=== PATIENT | female | born 1980 | race African-American/Black ===

== ENCOUNTER 2018-10-16 12:15 | Emergency (ER) | payer MEDICAID, OTHER ==
[~2018-10-16] VITALS: Ht 172.7 cm; Wt 54.5 kg
[2018-10-16 14:20] VITALS: BP 136/92
[2018-10-16] MEDS ORDERED: IBUPROFEN 600 MG TABLET PO ONE (14:30)
== END 2018-10-16 14:54 | disposition home or self-care (01) ==
LOC: EMS 12:15
DX: R07.81 Pleurodynia (principal)

== ENCOUNTER 2022-01-14 14:24 | Emergency (ER) | payer MEDICAID, OTHER ==
[~2022-01-14] VITALS: Ht 172.7 cm; Wt 61.4 kg
[2022-01-14] MEDS ORDERED: MORPHINE SULFATE 4 MG/ML SYRINGE IVP ONE (14:45)
[2022-01-14] MEDS ORDERED: LIDOCAINE 1% 10 ML VIAL ID ONE (14:45)
[2022-01-14] MEDS ORDERED: SODIUM CHLORIDE 0.9% 250 ML IRRIG SOLUTION BOTTLE IRRIG ONE (14:45)
[2022-01-14] MEDS ORDERED: SODIUM CHLORIDE 0.9% 1,000 ML IV ONE (14:45)
[2022-01-14] MEDS ORDERED: DiphenhydrAMINE HCL 50 MG/ML VIAL IVP ONE (14:45)
[2022-01-14 15:02] LABS: BASOPHILS % (AUTO) 0.4 % (0.0-2.0); EOSINOPHILS % (AUTO) 0.5 % (1.0-6.0); HEMATOCRIT 36.2 % (36-46); HEMOGLOBIN 11.7 g/dL (12.0-16.0); LYMPHOCYTES # (AUTO) 0.7 K/uL (1.0-4.8); LYMPHOCYTES % (AUTO) 9.3 % (22.0-44.0); MEAN CORPUSCULAR HEMOGLOBIN 27.4 pg (26.0-34.0); MEAN CORPUSCULAR HGB CONC 32.4 G/dL (31.0-37.0); MEAN CORPUSCULAR VOLUME 85 fL (80-100); MONOCYTES # (AUTO) 0.2 K/uL (0.1-1.0); MONOCYTES % (AUTO) 3.2 % (2.0-9.0); NEUTROPHILS # (AUTO) 6.1 K/uL (1.8-7.7); PLATELET COUNT (AUTO) 362 K/uL (150-450); RED BLOOD CELL COUNT(AUTO) 4.27 MIL/uL (4.00-5.20); RED CELL DISTRIBUTION WIDTH 15.6 % (11.5-14.5)
[2022-01-14 15:13] LABS: NEUTROPHILS % (AUTO) 86.6 % (40.0-70.0)
[2022-01-14 15:15] LABS: ANION GAP 10 mmol/L (8-16); CALCIUM, TOTAL 8.8 mg/dL (8.8-10.5); CARBON DIOXIDE 26 mmol/L (22-29); CHLORIDE 106 mmol/L (98-107); CREATININE 1.12 mg/dL (0.60-1.30); GLOMERULAR FILTR. RATE CALC > 60 mL/min (>60); GLUCOSE,RANDOM 89 mg/dL (70-110); POTASSIUM 4.9 mmol/L (3.5-5.1); SODIUM SERUM 142 mmol/L (136-145); UREA NITROGEN, BLOOD 21 mg/dL (7-18)
[2022-01-14 15:26] LABS: ALANINE AMINOTRANSFERASE 21 U/L (12-78); ALKALINE PHOSPHATASE 62 U/L (46-116); ASPARTATE AMINOTRANSFERASE 27 U/L (15-37); BILIRUBIN,TOTAL 0.8 mg/dL (0.1-1.0); HCG,QUANTITATIVE < 1 mIU/mL (0-6); TOTAL PROTEIN, SERUM 7.4 g/dL (6.4-8.2)
[2022-01-14] MEDS ORDERED: IOHEXOL 350 MG/ML 100 ML VIAL ONE (15:43)
[2022-01-14] MEDS ORDERED: SODIUM CHLORIDE 0.9% 100 ML ONE (15:43)
[2022-01-14] MEDS ORDERED: NEOMYCIN/BACITRACIN/POLYMYXIN B OINTMENT PACKET TP ONE (19:30)
[2022-01-14 20:31] VITALS: BP 119/83
[2022-01-14] MEDS ORDERED: CEPH-558 PO (20:32)
[2022-01-14] MEDS ORDERED: TRAM50TA4 PO (20:32)
== END 2022-01-14 23:48 | disposition home or self-care (01) ==
LOC: EMS 14:26
DX: S31.114A Laceration without foreign body of abdominal wall, left lower quadrant without penetration into peritoneal cavity, initial encounter (principal); V19.9XXA Pedal cyclist (driver) (passenger) injured in unspecified traffic accident, initial encounter; Y93.I9 Activity, other involving external motion; Y92.89 Other specified places as the place of occurrence of the external cause; Y99.8 Other external cause status; S80.212A Abrasion, left knee, initial encounter; S50.312A Abrasion of left elbow, initial encounter; S50.812A Abrasion of left forearm, initial encounter; S40.212A Abrasion of left shoulder, initial encounter
CPT/HCPCS: 99285; 74177; 96374; 96361; 96375; 80053; 84702; 85025; 36415; 12001; J1200; J2270; J3490; Q9967; J7030; J7050

== ENCOUNTER 2022-06-29 20:56 | Emergency (ER) | payer OTHER ==
[~2022-06-29] VITALS: Ht 172.7 cm; Wt 61.0 kg
[~2022-06-29 20:56] MED LIST: CEPH-558 PO; TRAM-559 PO
[2022-06-30 04:46] LABS: BASOPHILS % (AUTO) 0.5 % (0.0-2.0); EOSINOPHILS % (AUTO) 2.2 % (1.0-6.0); HEMATOCRIT 33.7 % (36-46); HEMOGLOBIN 10.9 g/dL (12.0-16.0); LYMPHOCYTES # (AUTO) 1.1 K/uL (1.0-4.8); LYMPHOCYTES % (AUTO) 28.2 % (22.0-44.0); MEAN CORPUSCULAR HEMOGLOBIN 27.8 pg (26.0-34.0); MEAN CORPUSCULAR HGB CONC 32.3 G/dL (31.0-37.0); MEAN CORPUSCULAR VOLUME 86 fL (80-100); MONOCYTES # (AUTO) 0.5 K/uL (0.1-1.0); MONOCYTES % (AUTO) 12.1 % (2.0-9.0); NEUTROPHILS # (AUTO) 2.3 K/uL (1.8-7.7); PLATELET COUNT (AUTO) 305 K/uL (150-450); RED BLOOD CELL COUNT(AUTO) 3.91 MIL/uL (4.00-5.20); RED CELL DISTRIBUTION WIDTH 15.4 % (11.5-14.5)
[2022-06-30 04:50] LABS: ANION GAP 7 mmol/L (8-16); CALCIUM, TOTAL 8.1 mg/dL (8.8-10.5); CARBON DIOXIDE 30 mmol/L (22-29); CHLORIDE 104 mmol/L (98-107); CREATININE 0.78 mg/dL (0.60-1.30); GLUCOSE,RANDOM 99 mg/dL (70-110); POTASSIUM 3.7 mmol/L (3.5-5.1); SODIUM SERUM 141 mmol/L (136-145); UREA NITROGEN, BLOOD 10 mg/dL (7-18)
[2022-06-30 04:51] LABS: GLOMERULAR FILTR. RATE CALC > 60 mL/min (>60)
[2022-06-30 04:53] LABS: ALANINE AMINOTRANSFERASE 20 U/L (12-78); ALBUMIN 3.3 g/dL (3.4-5.0); ALKALINE PHOSPHATASE 81 U/L (46-116); ASPARTATE AMINOTRANSFERASE 23 U/L (15-37); BILIRUBIN,TOTAL 0.3 mg/dL (0.1-1.0)
[2022-06-30 04:56] LABS: LACTIC ACID 0.8 mmol/L (0.4-2.0)
[2022-06-30 09:22] LABS: COVID AG,FIA SOURCE NASAL SWAB
[2022-06-30 09:47] LABS: INFLUENZA TYPE A NEGATIVE FOR TYPE A (NEGATIVE); INFLUENZA TYPE B NEGATIVE FOR TYPE B (NEGATIVE)
[2022-06-30] MEDS ORDERED: AZIT250T9 PO (10:20)
[2022-06-30 10:53] VITALS: BP 146/86
== END 2022-06-30 10:55 | disposition home or self-care (01) ==
LOC: EMS 21:07
DX: B34.9 Viral infection, unspecified (principal); J18.9 Pneumonia, unspecified organism; R56.9 Unspecified convulsions; Z20.822 Contact with and (suspected) exposure to COVID-19; Z98.890 Other specified postprocedural states
CPT/HCPCS: 71045; 80053; 83605; 85025; 87804; 99284; 36415-L1; 36415-TC

== ENCOUNTER 2022-08-07 11:20 | Emergency (ER) | payer OTHER ==
[~2022-08-07] VITALS: Ht 172.7 cm; Wt 59.5 kg
[2022-08-07] MEDS ORDERED: OXYC20TA58 PO (11:27)
[2022-08-07] MEDS ORDERED: CARB100 PO (11:27)
[2022-08-07] MEDS ORDERED: GABA-1181 PO ×3 (11:27→15:27)
[2022-08-07] MEDS ORDERED: CARB200T6 PO (11:31)
[2022-08-07] MEDS ORDERED: DICL100G31 TP (11:31)
[2022-08-07] MEDS ORDERED: OXYC-617 PO (11:31)
[2022-08-07 14:33] VITALS: BP 112/65
[2022-08-07] MEDS ORDERED: OxyCODONE HCL/ACETAMINOPHEN 5-325 MG TABLET PO ONE (15:00)
== END 2022-08-07 15:29 | disposition home or self-care (01) ==
LOC: EMS 11:24
DX: M54.9 Dorsalgia, unspecified (principal); R56.9 Unspecified convulsions; Z98.890 Other specified postprocedural states; Z88.8 Allergy status to other drugs, medicaments and biological substances
CPT/HCPCS: 99283

== ENCOUNTER 2022-08-31 15:21 | Emergency (ER) | payer OTHER ==
[~2022-08-31] VITALS: Ht 172.7 cm; Wt 63.6 kg
[~2022-08-31 15:21] MED LIST changes: +CARB200T6 PO; -CEPH-558 PO; +DICL100G31 TP; +GABA-1181 PO; +OXYC-617 PO; -TRAM-559 PO
[2022-08-31] MEDS ORDERED: LIDOCAINE 5% TRANSDERMAL PATCH TD ONE (16:15)
[2022-08-31] MEDS ORDERED: ACETAMINOPHEN 500 MG TABLET PO ONE (16:15)
[2022-08-31 17:05] VITALS: BP 112/74
[2022-08-31] MEDS ORDERED: ACET-3385 PO (17:33)
[2022-08-31] MEDS ORDERED: IBUP-1492 PO (17:33)
[2022-08-31] MEDS ORDERED: LIDO700A15 TP (17:33)
== END 2022-08-31 18:12 | disposition home or self-care (01) ==
LOC: EMS 15:24
DX: S43.51XA Sprain of right acromioclavicular joint, initial encounter (principal); S39.012A Strain of muscle, fascia and tendon of lower back, initial encounter; Z88.8 Allergy status to other drugs, medicaments and biological substances; Z98.890 Other specified postprocedural states; V19.9XXA Pedal cyclist (driver) (passenger) injured in unspecified traffic accident, initial encounter; Y93.89 Activity, other specified; Y92.89 Other specified places as the place of occurrence of the external cause; Y99.8 Other external cause status
CPT/HCPCS: 72131; 99284